=== PATIENT | male | born 1995 | race Two or more races ===

== ENCOUNTER 2016-04-27 16:13 | Emergency (ER) | payer OTHER ==
[~2016-04-27] VITALS: Ht 172.7 cm; Wt 86.2 kg
[~2016-04-27 16:13] MED LIST: AZITHROMYCIN250 MG ORAL; IBUPROFEN600 MG ORAL; KEPPRA500 M4 ORAL; KEPPRA500 MG ORAL
[2016-04-27 17:18] VITALS: BP 124/79
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
[2016-04-27] MEDS ORDERED: KEPPRA500 M4 ORAL (17:37)
[2016-04-27 17:49] VITALS: BP 124/79
== END 2016-04-27 17:50 | disposition home or self-care (01) ==
LOC: EDBD 16:13 → EMR 17:43
DX: G40.909 Epilepsy, unspecified, not intractable, without status epilepticus (principal); G81.94 Hemiplegia, unspecified affecting left nondominant side
CPT/HCPCS: 80299; 99283

== ENCOUNTER 2016-07-22 11:30 | Emergency (ER) | payer MEDICAID, OTHER ==
[~2016-07-22] VITALS: Ht 170.2 cm; Wt 131.5 kg
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
[2016-07-22 11:52] VITALS: BP 105/90
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
[2016-07-22 13:26] VITALS: BP 114/78
[2016-07-22 13:29] VITALS: BP 114/78
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
== END 2016-07-22 13:35 | disposition home or self-care (01) ==
LOC: EDBD 11:30 → EMR 11:53
DX: S00.81XA Abrasion of other part of head, initial encounter (principal); S00.93XA Contusion of unspecified part of head, initial encounter; J32.9 Chronic sinusitis, unspecified; G81.94 Hemiplegia, unspecified affecting left nondominant side; Y09 Assault by unspecified means; Y93.9 Activity, unspecified; Y92.9 Unspecified place or not applicable
CPT/HCPCS: 12011; 70450; 70486; 80299; 99284; G0168; Z7502

== ENCOUNTER 2018-08-09 11:28 | Emergency (ER) | payer MEDICAID ==
[~2018-08-09] VITALS: Ht 167.6 cm; Wt 113.4 kg
[2018-08-09 11:43] VITALS: BP 103/62
--- NOTE | 2018-08-09 11:46 | NUR ---
ED Nurse Note: pt has a abscess to rt lower buttocks at apears to be mildly draining. awaiting ermd orders
--- NOTE | 2018-08-09 12:11 | NUR ---
ED Nurse Note: MYLES Smith at bedside.
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
[2018-08-09] MEDS ORDERED: NAPROXEN500 M2 ORAL (12:18)
[2018-08-09] MEDS ORDERED: CEPHALEXIN500 MG ORAL (12:18)
[2018-08-09 12:28] VITALS: BP 103/62
--- NOTE | 2018-08-09 12:29 | NUR ---
ER DISCHARGE NOTE:dry dressing applied to abscess Patient is cleared to be discharged per ERMD, pt is aox4, on room air, with stable vital signs. pt was given dc and prescription instructions, pt was able to verbalize understanding, pt is able to ambulate with steady gait. pt took all belongings.
== END 2018-08-09 12:40 | disposition home or self-care (01) ==
LOC: EMR 12:29
DX: L02.31 Cutaneous abscess of buttock (principal); L02.415 Cutaneous abscess of right lower limb; G81.94 Hemiplegia, unspecified affecting left nondominant side
CPT/HCPCS: 99283